=== PATIENT | female | born 1955 | race Caucasian/White ===

== ENCOUNTER 2019-09-11 09:20 | Emergency (ER) | payer OTHER ==
[~2019-09-11] VITALS: Ht 165.1 cm; Wt 108.4 kg
[2019-09-11] MEDS ORDERED: ASPIRIN CHEWABLE 81 MG TABLET. PO ONE (10:00)
[2019-09-11 10:20] LABS: BASO # 0.1 x10^3/uL (0.0-0.2); BASO % 1 % (0-3); EOS # 0.5 x10^3/uL (0.0-0.7); EOS % 7 % (0-3); HEMATOCRIT 40.3 % (36.0-47.0); HEMOGLOBIN 13.4 g/dL (12.0-15.5); LYMPH # 1.9 x10^3/uL (1.0-4.8); LYMPH % 29 % (24-48); MEAN CORPUSCULAR HEMOGLOBIN 29 pg (25-35); MEAN CORPUSCULAR HGB CONC 33 g/dL (31-37); MEAN CORPUSCULAR VOLUME 88 fL (79-100); MONO # 0.5 x10^3/uL (0.0-1.1); MONO % 8 % (0-9); NEUT # 3.6 x10^3/uL (1.8-7.7); NEUT % 55 % (31-73); PLATELET COUNT 226 x10^3/uL (140-400); RED CELL DISTRIBUTION WIDTH 13.3 % (11.5-14.5); WHITE BLOOD COUNT 6.6 x10^3/uL (4.0-11.0)
[2019-09-11 10:28] LABS: CALCIUM 8.6 mg/dL (8.5-10.1); CREATININE 0.6 mg/dL (0.6-1.0); GFR 101.6; POTASSIUM 4.1 mmol/L (3.5-5.1)
[2019-09-11 10:34] LABS: ALBUMIN 3.6 g/dL (3.4-5.0); TOTAL BILIRUBIN 0.5 mg/dL (0.2-1.0); TOTAL PROTEIN 7.1 g/dL (6.4-8.2)
[2019-09-11 10:35] LABS: PROTHROMBIN TIME PATIENT 12.9 SEC (11.7-14.0)
--- NOTE | 2019-09-11 11:00 | RAD ---
PA chest and left rib series: Reason for examination: Fell twice over the last 2 weeks with left flank pain. The heart size is normal. Mediastinum is unremarkable. Lung griggs are clear. No acute bony abnormalities are apparent. No left rib fractures are identified. IMPRESSION: No acute cardiopulmonary disease. No left rib fractures evident. Electronically signed by: Betty Bright MD (09/11/2019 10:57 AM) [facility]
[2019-09-11] MEDS ORDERED: HYDR-3164 PO (11:57)
--- NOTE | 2019-09-11 11:57 | PHYS DOC ---
Past Medical History Past Medical History: No Pertinent History Past Surgical History: Cholecystectomy Alcohol Use: None Drug Use: None Adult General Chief Complaint Chief Complaint: CHEST PAIN HPI HPI Patient is a 63 year old female without history of medical problem who presents with complaining of chest pain. Patient states she had accidental fall about 2 weeks ago and injured left side of her chest and since then has had intermittent episodes of exertional anterior and lateral chest pain that usually lasts about a few minutes and getting better with rest. Patient stated the pain radiated to her back and denies shortness of breath, nausea and vomiting, palpitation, fever and chills, cough. Patient states she was seen by her primary care physician 1 week ago and treated for muscle pain. Patient states she had another accidental fall while she was at 4-5 days ago and had left ankle injury and again left c hest wall injury and was seen in another hospital and treated for fracture of ankle but her pain became worse and her primary care physician recommended to come to the emergency room. Patient denies chest pain at arrival to ER. Review of Systems Review of Systems Constitutional: Denies fever or chills [] Eyes: Denies change in visual acuity, redness, or eye pain [] HENT: Denies nasal congestion or sore throat [] Respiratory: Denies cough or shortness of breath [] Cardiovascular: No additional information not addressed in HPI [] GI: Denies abdominal pain, nausea, vomiting, bloody stools or diarrhea [] : Denies dysuria or hematuria [] Musculoskeletal: Denies back pain, reports joint pain [] Integument: Denies rash or skin lesions [] Neurologic: Denies headache, focal weakness or sensory changes [] Endocrine: Denies polyuria or polydipsia [] All other systems were reviewed and found to be within normal limits, except as documented in this note. Current Medications Current Medications Current Medications Medications (Trade) Dose Ordered Sig/Alba Start Time Stop Time Status Last Admin Dose Admin Aspirin (Children'S Aspirin) 324 mg 1X ONCE 09/11/19 10:00 09/11/19 10:01 UNV 09/11/19 10:13 324 MG Physical Exam Physical Exam Constitutional: Well developed, well nourished, no acute distress, non-toxic appearance. [] HENT: Normocephalic, atraumatic, bilateral external ears normal, oropharynx moist, no oral exudates, nose normal. [] Eyes: PERRLA, EOMI, conjunctiva normal, no discharge. [] Neck: Normal range of motion, no tenderness, supple, no stridor. [] Cardiovascular:Heart rate regular rhythm, no murmur [] Lungs & Thorax: Bilateral breath sounds clear to auscultation, no chest wall contusion or deformity or emphysema, mild tenderness in anterior and lateral side of chest wall [] Abdomen: Bowel sounds normal, soft, no tenderness, no masses, no pulsatile masses. [] Skin: Warm, dry, no erythema, no rash. [] Back: No tenderness, no CVA tenderness. [] Extremities: No tenderness, no cyanosis, no clubbing, ROM intact, no edema. [] Neurologic: Alert and oriented X 3, normal motor function, normal sensory function, no focal deficits noted. [] Psychologic: Affect normal, judgement normal, mood normal. [] Current Patient Data Lab Values Laboratory Tests Test 09/11/19 10:03 White Blood Count 6.6 x10^3/uL (4.0-11.0) Red Blood Count 4.60 x10^6/uL (3.50-5.40) Hemoglobin 13.4 g/dL (12.0-15.5) Hematocrit 40.3 % (36.0-47.0) Mean Corpuscular Volume 88 fL (79-100) Mean Corpuscular Hemoglobin 29 pg (25-35) Mean Corpuscular Hemoglobin Concent 33 g/dL (31-37) Red Cell Distribution Width 13.3 % (11.5-14.5) Platelet Count 226 x10^3/uL (140-400) Neutrophils (%) (Auto) 55 % (31-73) Lymphocytes (%) (Auto) 29 % (24-48) Monocytes (%) (Auto) 8 % (0-9) Eosinophils (%) (Auto) 7 % (0-3) H Basophils (%) (Auto) 1 % (0-3) Neutrophils # (Auto) 3.6 x10^3/uL (1.8-7.7) Lymphocytes # (Auto) 1.9 x10^3/uL (1.0-4.8) Monocytes # (Auto) 0.5 x10^3/uL (0.0-1.1) Eosinophils # (Auto) 0.5 x10^3/uL (0.0-0.7) Basophils # (Auto) 0.1 x10^3/uL (0.0-0.2) Prothrombin Time 12.9 SEC (11.7-14.0) Prothrombin Time INR 1.0 (0.8-1.1) Sodium Level 142 mmol/L (136-145) Potassium Level 4.1 mmol/L (3.5-5.1) Chloride Level 106 mmol/L (98-107) Carbon Dioxide Level 31 mmol/L (21-32) Anion Gap 5 (6-14) L Blood Urea Nitrogen 14 mg/dL (7-20) Creatinine 0.6 mg/dL (0.6-1.0) Estimated GFR (Cockcroft-Gault) 101.6 BUN/Creatinine Ratio 23 (6-20) H Glucose Level 89 mg/dL (70-99) Calcium Level 8.6 mg/dL (8.5-10.1) Magnesium Level 2.0 mg/dL (1.8-2.4) Total Bilirubin 0.5 mg/dL (0.2-1.0) Aspartate Amino Transferase (AST) 15 U/L (15-37) Alanine Aminotransferase (ALT) 26 U/L (14-59) Alkaline Phosphatase 98 U/L (46-116) Creatine Kinase 79 U/L (26-192) Troponin I Quantitative < 0.017 ng/mL (0.000-0.055) FS-Dkk-P-Type Natriuretic Peptide 101 pg/mL (0-124) Total Protein 7.1 g/dL (6.4-8.2) Albumin 3.6 g/dL (3.4-5.0) Albumin/Globulin Ratio 1.0 (1.0-1.7) Lipase 79 U/L (73-393) Laboratory Tests 09/11/19 10:03 Laboratory Tests 09/11/19 10:03 EKG EKG EKG interpreted by me. EKG at 0935 showed normal sinus rhythm at rate of 61, left atrial abnormalities, left axis deviation, left anterior fascicular block, nonspecific T-wave abnormalities, no acute ST and T-wave elevation. Radiology/Procedures Radiology/Procedures [][facility] [address] [place] [address] IMAGING REPORT Signed PATIENT: ARIELLE SCHAEFER ACCOUNT: [id number] : 1955 LOCATION: ER AGE: 63 SEX: F EXAM STATUS: REG ER ORD. PHYSICIAN: JACOB GARCIA MD REASON: 2 falls over last 2 weeks. left flank pain PROCEDURE: RIBS LEFT AND PA CHEST PA chest and left rib series: Reason for examination: Fell twice over the last 2 weeks with left flank pain. The heart size is normal. Mediastinum is unremarkable. Lung griggs are clear. No acute bony abnormalities are apparent. No left rib fractures are identified. IMPRESSION: No acute cardiopulmonary disease. No left rib fractures evident. Electronically signed by: Mal Tom MD (09/11/2019 10:57 AM) [facility] DICTATED and SIGNED BY: MAL TOM MD DATE: 09/11/19 6714 Course & Med Decision Making Course & Med Decision Making Pertinent Labs and Imaging studies reviewed. (See chart for details) Evaluation of patient in ER showed 63-year-old male patient with a fall and injury to left side of chest for 2 weeks that getting worse after another fall. Patient had unremarkable chest and rib x-ray, labs and EKG except for nonspecific T-wave abnormalities. Patient had heart score of 2. Patient was advised to follow up with her primary care physician and continue current muscle relaxant and prescription for [place] was given. Dragon Disclaimer Dragon Disclaimer This electronic medical record was generated, in whole or in part, using a voice recognition dictation system. Departure Departure Impression: Primary Impression: Musculoskeletal chest pain Additional Impression: Fall Disposition: HOME, SELF-CARE (at 1156) Condition: STABLE Referrals: J LUIS ORTEGA MD (PCP) Patient Instructions: Chest Wall Pain, Fall Prevention and Home Safety Additional Instructions: Drink plenty of liquids Follow-up with your primary care physician in 3-5 days Return to ER if not getting better Continue home medication Scripts Hydrocodone/Apap 5-325 (NORCO 5-325 TABLET) 1 Each Tablet 1 TAB PO PRN Q6HRS PRN for PAIN, #10 TAB 0 Refills Prov: JACOB GARCIA MD 09/11/19 The HEART Score for CP Pts HEART Score for Chest Pain: HEART Score for Chest Pain Response (Comments) Value History Slighlty/Non-Suspicious 0 ECG Nonspecific Repolarizatio 1 Age >45 - < 65 1 Risk Factors No Risk Factors 0 Troponin < Normal Limit 0 Total 2 Risk Factors: Risk Factors: DM, Current or recent (<one month) smoker, HTN, HLP, family history of CAD, obesity. Risk Scores: Score 0 - 3: 2.5% MACE over next 6 weeks - Discharge Home Score 4 - 6: 20.3% MACE over next 6 weeks - Admit for Clinical Observation Score 7 - 10: 72.7% MACE over next 6 weeks - Early Invasive Strategies Problem Qualifiers Additional Impression: Fall Encounter type: subsequent encounter Qualified Codes: W19.XXXD - Unspecified fall, subsequent encounter JACOB GARCIA MD Sep 11, 2019 11:57
[2019-09-11 12:06] VITALS: BP 127/53
--- NOTE | 2019-09-12 15:14 | EKG ---
[facility] [address] [place] [address] Test Date: 2019-09-11 Test Time: 09:31:30 Pat Name: ARIELLE SCHAEFER Department: Room: Gender: F Web Applications Administrator: : 1955 Requested By: JACOB GARCIA Order Number: [id number] Reading MD: Leno Seymour MD Measurements Intervals [place] Rate: 60 P: 43 AK: 138 QRS: -48 QRSD: 96 T: 6 QT: 454 QTc: 458 Interpretive Statements SINUS RHYTHM RBBB LAFB Electronically Signed On 09-14-2019 14:12:09 [employer] by Leno Seymour MD
== END 2019-09-11 12:07 | disposition home or self-care (01) ==
LOC: ER 09:20
DX: R07.89 Other chest pain (principal); G89.11 Acute pain due to trauma; W18.39XA Other fall on same level, initial encounter; Y93.89 Activity, other specified; Y92.89 Other specified places as the place of occurrence of the external cause; Y99.8 Other external cause status
CPT/HCPCS: 36415; 71101; 80053; 82550; 83690; 83735; 83880; 84484; 85025; 85610; 93005; 99285-25